=== PATIENT | male | born 1950 | race Caucasian/White ===

== ENCOUNTER → 2017-04-16 | Outpatient (CLI) | payer MEDICARE, BC ==
--- NOTE | 2017-04-16 12:38 | RADIOLOGY REPORT (SQ) ---
EXAM DESCRIPTION: U/S ABDOMEN COMPLETE W/O DOP COMPLETED DATE/TIME: 04/16/2017 11:13 am REASON FOR STUDY: R11.2 NAUSEA WITH VOMITING, UNSPECIFIED R19.7 DIARRHEA, UNSPECIFIED R11.2 NAUSEA WITH VOMITING, UNSPECIFIED R19.7 DIARRHEA, UNSPECIFIED COMPARISON: None. TECHNIQUE: Dynamic and static grayscale images acquired of the abdomen and recorded on PACS. Additio nal selected color Doppler and spectral images recorded. LIMITATIONS: None. FINDINGS: PANCREAS: No masses. Visualized pancreatic duct normal caliber. LIVER: Echotexture is coarse with increased echogenicity consistent with fatty infiltration. LIVER VASCULATURE: Normal directional flow of the main portal vein and hepatic veins. GALLBLADDER: No stones. Normal wall thickness. No pericholecystic fluid. ULTRASOUND-DETECTED NAIR'S SIGN: Negative. INTRAHEPATIC DUCTS AND COMMON DUCT: CBD and intrahepatic ducts normal caliber. No filling defects. INFERIOR VENA CAVA: Normal flow. AORTA: No aneurysm. RIGHT KIDNEY: Normal size. Normal echogenicity. 1.7 cm cyst. No solid or suspicious masses. No hyd ronephrosis. No calcifications. LEFT KIDNEY: Normal size. Normal echogenicity. No solid or suspicious masses. No hydronephrosis. No calcifications. SPLEEN:Normal size. No solid masses. PERITONEAL AND PLEURAL SPACES: No ascites or effusions. OTHER: No other significant finding. IMPRESSION: FATTY LIVER. CORTICAL CYST IN THE RIGHT KIDNEY. NO OTHER SIGNIFICANT FINDING. TECHNICAL DOCUMENTATION: JOB ID: [id number] [employer]- All Rights Reserved
== END ==
LOC: RAD 10:29
PROVIDERS: ATTEND Internal Medicine Gastroenterology
DX: K76.0 Fatty (change of) liver, not elsewhere classified (principal); R11.2 Nausea with vomiting, unspecified; R19.7 Diarrhea, unspecified; Q61.01 Congenital single renal cyst
CPT/HCPCS: 76700

== ENCOUNTER → 2018-12-14 | Outpatient (CLI) | payer MEDICARE, BC ==
--- NOTE | 2018-12-14 15:31 | RADIOLOGY REPORT (SQ) ---
EXAM DESCRIPTION: CAROTID DOPPLER COMPLETED DATE/TIME: 12/14/2018 10:42 am REASON FOR STUDY: PAD I73.9 PERIPHERAL VASCULAR DISEASE, UNSPECIFIED Z87.891 PERSONAL HISTORY OF N ICOTINE DEPENDENCE COMPARISON: None. TECHNIQUE: Grayscale ultrasound, Doppler velocity and spectra, and color Doppler images acquired of the extra-cranial carotid and vertebral arteries. Images stored on PACS. LIMITATIONS: None. FINDINGS: RIGHT CAROTID CCA Velocities: Within normal limits. ICA Velocities Peak systolic 77 cm/s. End diastolic 25 cm/s. Proximal ICA/CCA peak systolic ratio 0.68. Spectra normal. No significant plaque. LEFT CAROTID CCA Velocities: Within normal limits. ICA Velocities Peak systolic 76 cm/s. End diastolic 23 cm/s. Proximal ICA/CCA peak systolic ratio 0.86. There is some irregular plaque in the proximal ICA. VERTEBRAL ARTERIES: Antegrade flow. Normal waveforms. SUBCLAVIAN ARTERIES: No finding. OTHER: No other significant finding. IMPRESSION: NO HEMODYNAMICALLY SIGNIFICANT STENOSIS. COMMENT: Quality ID #[id number]: Velocity criteria are extrapolated from the diameter data as defined by t he Society of Radiologists in Ultrasound Consensus Conference. Radiology 2003: 229; 340-346. TECHNICAL DOCUMENTATION: JOB ID: [id number] [employer]- All Rights Reserved Reading location - IP/workstation name: [email or web address]
== END ==
LOC: SP 09:48
PROVIDERS: ATTEND Family Medicine
DX: I73.9 Peripheral vascular disease, unspecified (principal); Z87.891 Personal history of nicotine dependence
CPT/HCPCS: 93880

== ENCOUNTER → 2018-12-16 | Outpatient (CLI) | payer MEDICARE, BC ==
--- NOTE | 2018-12-16 09:00 | RADIOLOGY REPORT (SQ) ---
EXAM DESCRIPTION: U/S ABD AORTIC SCREENING COMPLETED DATE/TIME: 12/16/2018 8:47 am REASON FOR STUDY: I73.9 PERIPHERAL VASCULAR DISEASE, UNSPECIFIED Z87.891 PERSONAL HISTORY OF BRYAN CHEEK DEPENDENCE I73.9 PERIPHERAL VASCULAR DISEASE, UNSPECIFIED COMPARISON: None. TECHNIQUE: Static and dynamic grayscale images acquired of the aorta and stored on PACs. Selected co martin Doppler and spectral images recorded. LIMITATIONS: None. FINDINGS: AORTIC CALIBER MAXIMAL PROXIMAL: 2.2 cm. MID: 1.7 cm. DISTAL: 1.5 cm. ILIAC DIAMETER RIGHT: 1.0 cm. LEFT: 0.9 cm. OTHER: No other significant finding. IMPRESSION: NO ABDOMINAL AORTIC ANEURYSM. COMMENT: Aortic aneurysm imaging followup: 2.6-2.9 cm Every 5 years* *Based upon the Society for Vascular Surgery Guidelines: J Vasc Surg. 2009 Oct;50(4 Suppl):S2-49 *For aortas of maximum diameter of 2.6-2.9 cm meeting the criteria for AAA (?1.5 x proximal normal se gment) TECHNICAL DOCUMENTATION: JOB ID: [id number] [employer]- All Rights Reserved Reading location - IP/workstation name: [email or web address]
== END ==
LOC: RAD 08:12
PROVIDERS: ATTEND Family Medicine
DX: Z13.6 Encounter for screening for cardiovascular disorders (principal); I73.9 Peripheral vascular disease, unspecified; Z09 Encounter for follow-up examination after completed treatment for conditions other than malignant neoplasm; Z87.891 Personal history of nicotine dependence
CPT/HCPCS: 76706

== ENCOUNTER → 2019-04-29 | Outpatient (CLI) | payer MEDICARE, BC ==
--- NOTE | 2019-04-29 13:07 | RADIOLOGY REPORT (SQ) ---
EXAM DESCRIPTION: CT RT LOWER EXTREMITY WITHOUT COMPLETED DATE/TIME: 04/29/2019 9:50 am REASON FOR STUDY: PAIN IN RIGHT HIP/LEG COMPARISON: None. TECHNIQUE: Axial imaging performed through the Right hip with reformatted coronal and sagittal imaging windowed for bone and soft tissues. Images saved to PAC S. 3D IMAGING: Were 3D images as MIP, SSD, or volume rendering performed at the work station? Yes LIMITATIONS: Metal artifact. FINDINGS: SOFT TISSUES: No obvious swelling or foreign body. BONY STRUCTURES: Total hip arthroplasty. Demineralization and loss of trabecular pattern in the isch ium and femoral osteotomy bed. Lateral migration of the femoral component within the cup. Mild acet abular protrusio. MINERALIZATION: See above. OTHER: No other significant finding. 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 COMMENT: Findings were called to Alvaro Gonzalez PA-C on 04/29/2019 at 1258 hours. Reading location - IP/workstation name: [email or web address]
== END ==
LOC: RAD 09:31
PROVIDERS: ATTEND Physician Assistant
DX: M25.551 Pain in right hip (principal); M79.604 Pain in right leg

== ENCOUNTER 2019-11-05 12:23 | Emergency (ER) | payer MEDICARE, BC ==
--- NOTE | 2019-11-05 13:07 | ER Document Report ---
ED Medical Screen (RME) - General Chief Complaint: Fall Stated Complaint: FALL/HEAD PAIN Time Seen by Provider: 11/05/19 12:48 Primary Care Provider: JOSE ULRICH PA [Primary Care Provider] - Follow up as needed Notes: Patient is a 69-year-old male who presents the emergency department after a fall. He sustained his fall yesterday when he was walking. Patient has history of a stroke. He is currently on Eliquis for atrial fibrillation. Patient states that he has pain to his head, left knee, nose and left wrist. Exam: Abrasions noted to nose, left knee. Swelling noted to left wrist. Alert and oriented. I have greeted and performed a rapid initial assessment of this patient. A comprehensive ED assessment and evaluation of the patient, analysis of test results and completion of medical decision making process will be conducted by an additional ED providers. TRAVEL OUTSIDE OF THE [place] IN LAST 30 DAYS: No - Related Data Allergies/Adverse Reactions: No Known Allergies Allergy (Unverified 11/23/14 12:18) Home Medications: Eliquis Past Medical History - Social History Chew tobacco use (# tins/day): No Frequency of alcohol use: None Drug Abuse: None - Past Medical History Cardiac Medical History: Reports: Hx Hypertension - ON MEDS, Hx Peripheral Vascular Disease Denies: Hx Heart Attack Pulmonary Medical History: Denies: Hx Asthma Neurological Medical History: Denies: Hx Cerebrovascular Accident, Hx Seizures GI Medical History: Denies: Hx Hepatitis, Hx Hiatal Hernia, Hx Ulcer Psychiatric Medical History: Reports: Hx Depression Infectious Medical History: Denies: Hx Hepatitis Past Surgical History: Reports: Hx Orthopedic Surgery, Hx Vascular Surgery - stent in leg. Denies: Hx Open Heart Surgery, Hx Pacemaker - Immunizations Hx Diphtheria, Pertussis, Tetanus Vaccination: Yes Physical Exam - Vital signs Vitals: Temp Pulse Resp BP Pulse Ox 99.1 F 76 16 144/57 H 98 11/05/19 12:39 11/05/19 12:39 11/05/19 12:39 11/05/19 12:39 11/05/19 12:39 Course - Vital Signs Vital signs: Temp Pulse Resp BP Pulse Ox 99.1 F 76 16 144/57 H 98 11/05/19 12:39 11/05/19 12:39 11/05/19 12:39 11/05/19 12:39 11/05/19 12:39 Doctor's Discharge - Discharge Referrals: JOSE ULRICH PA [Primary Care Provider] - Follow up as needed
--- NOTE | 2019-11-05 13:27 | RADIOLOGY REPORT (SQ) ---
EXAM DESCRIPTION: CT HEAD WITHOUT IMAGES COMPLETED DATE/TIME: 11/05/2019 1:17 pm REASON FOR STUDY: fall; head pain; on Eliquis COMPARISON: None. TECHNIQUE: Axial images acquired through the brain without intravenous contrast. Images reviewed wi th bone, brain and subdural windows. Additional sagittal and coronal reconstructions were generated. Images stored on PACS. All CT scanners at this facility use dose modulation, iterative reconstruction, and/or weight based d osing when appropriate to reduce radiation dose to as low as reasonably achievable (ALARA). [facility]: Dose Right [facility]: CareDose [facility]: Dose Right [facility]: Teradose 4D [facility]: baseclick RADIATION DOSE: CT Rad equipment meets quality standard of care and radiation dose reduction techniq ues were employed. CTDIvol: 53.2 mGy. DLP: 1044 mGy-cm. LIMITATIONS: None. FINDINGS: Probable arachnoid granulations in the left anterior cranial fossa. There is an area ence phalomalacia and gliosis in the right cerebellar hemisphere. There is no acute intracranial hemorrha ge, vascular territorial infarct, extra-axial fluid collection, mass effect or midline shift. The gr ay-white matter differentiation is preserved. The caliber of the ventricles is concordant with the d egree of sulcation. There is no effacement of the cerebral sulci or basal subarachnoid cisterns. The globes are aphakic. The orbits are intact. The paranasal sinuses are clear. There is no fractu re of the calvarium. IMPRESSION: 1. Chronic infarct in the right cerebellar hemisphere and probable arachnoid granulation s in the left anterior cranial fossa. 2. No acute intracranial abnormality. EVIDENCE OF ACUTE STROKE: NO. COMMENT: Quality ID # 436: Final reports with documentation of one or more dose reduction techniques (e.g., Automated exposure control, adjustment of the mA and/or kV according to patient size, use of iterative reconstruction technique) TECHNICAL DOCUMENTATION: JOB ID: [id number] 2010 [employer]- All Rights Reserved Reading location - IP/workstation name: [email or web address]
--- NOTE | 2019-11-05 13:32 | RADIOLOGY REPORT (SQ) ---
EXAM DESCRIPTION: CT CERVICAL SPINE WITHOUT IMAGES COMPLETED DATE/TIME: 11/05/2019 1:17 pm REASON FOR STUDY: fall COMPARISON: None. TECHNIQUE: Axial images acquired through the cervical spine without intravenous contrast. Images re viewed with lung, soft tissue and bone windows. Reconstructed coronal and sagittal MPR images review ed. Images stored on PACS. All CT scanners at this facility use dose modulation, iterative reconstruction, and/or weight based d osing when appropriate to reduce radiation dose to as low as reasonably achievable (ALARA). [facility]: Dose Right [facility]: CareDose [facility]: Dose Right [facility]: Teradose 4D [facility]: LectureTools RADIATION DOSE: CT Rad equipment meets quality standard of care and radiation dose reduction techniq ues were employed. CTDIvol: 19.5 mGy. DLP: 357 mGy-cm. LIMITATIONS: None. FINDINGS: ALIGNMENT: Grade 1 retrolisthesis of C3 relative to C4. There is no craniocervical or eric antoaxial dissociation. MINERALIZATION: Normal. VERTEBRAL BODIES: The cervical vertebral body heights are preserved. There is no fracture. DISCS: Evaluation of the spinal canal for stenosis or compression is limited due to the absence of in travenous contrast. The C3-C4, C4-C5 and C5-C6 intervertebral disc spaces are narrowed. FACETS, LATERAL MASSES, POSTERIOR ELEMENTS: Osteophytic foraminal stenosis on the left at C3-C4, bila terally at C4-C5, and on the right at C5-C6. There is no acute fracture. HARDWARE: None in the spine. VISUALIZED RIBS: No fractures. LUNG APICES AND SOFT TISSUES: Atherosclerotic calcification of the carotid bifurcations. The right l obe of the thyroid gland is heterogeneous. OTHER: No other finding. IMPRESSION: No acute fracture or malalignment of the cervical spine. TECHNICAL DOCUMENTATION: JOB ID: [id number] Quality ID # [id number]: Final reports with documentation of one or more dose reduction techniques (e.g., Au tomated exposure control, adjustment of the mA and/or kV according to patient size, use of iterative reconstruction technique) 2010 [employer]- All Rights Reserved Reading location - IP/workstation name: [email or web address]
--- NOTE | 2019-11-05 13:32 | RADIOLOGY REPORT (SQ) ---
EXAM DESCRIPTION: KNEE LEFT 4 VIEW IMAGES COMPLETED DATE/TIME: 11/05/2019 1:18 pm REASON FOR STUDY: fall; pain COMPARISON: None. NUMBER OF VIEWS: Four views. TECHNIQUE: AP, lateral, and both oblique radiographic images acquired of the left knee. LIMITATIONS: None. FINDINGS: MINERALIZATION: Osteopenia. BONES: No acute fracture or dislocation. No worrisome bone lesions. Report background of tricompart mental degenerative changes, most significantly affecting the medial compartment. JOINT: Small joint effusion. SOFT TISSUES: Soft tissue swelling overlies the proximal patellar tendon. OTHER: No other significant finding. IMPRESSION: Anterior soft tissue swelling and small joint effusion without associated osseous injury . Background of tricompartmental degenerative changes. TECHNICAL DOCUMENTATION: JOB ID: [id number] 2010 [employer]- All Rights Reserved Reading location - IP/workstation name: [email or web address]
--- NOTE | 2019-11-05 13:35 | RADIOLOGY REPORT (SQ) ---
EXAM DESCRIPTION: WRIST LEFT 3 VIEWS IMAGES COMPLETED DATE/TIME: 11/05/2019 1:18 pm REASON FOR STUDY: fall; pain COMPARISON: None. NUMBER OF VIEWS: Three views. TECHNIQUE: AP, lateral, and oblique radiographic images acquired of the left wrist. LIMITATIONS: None. FINDINGS: MINERALIZATION: Osteopenia. BONES: Severe degenerative changes are seen of the thumb carpal metacarpal and thumb metacarpal phala ngeal joints. An ossicle adjacent to the ulnar styloid is consistent with sequela of remote trauma. No acute fracture or dislocation is demonstrated. SOFT TISSUES: No soft tissue swelling. No foreign body. OTHER: No other significant finding. IMPRESSION: No evidence of acute osseous injury. Background of severe thumb carpal metacarpal and m etacarpal phalangeal joint degenerative changes. TECHNICAL DOCUMENTATION: JOB ID: [id number] 2010 [employer]- All Rights Reserved Reading location - IP/workstation name: [email or web address]
[2019-11-05 13:53] LABS: ABSOLUTE EOSINOPHILS # (AUTO) 0.5 10^3/uL (0.0-0.6); ABSOLUTE LYMPHOCYTES (AUTO) 1.2 10^3/uL (0.5-4.7); ABSOLUTE MONOCYTES (AUTO) 0.8 10^3/uL (0.1-1.4); BASOPHILS % (AUTO) 0.2 % (0-2); EOSINOPHILS % (AUTO) 4.6 % (0-6); HEMATOCRIT 33.7 % (37.9-51.0); HEMOGLOBIN 11.6 g/dL (13.5-17.0); LYMPHOCYTES % (AUTO) 11.6 % (13-45); MEAN CORPUSCULAR HEMOGLOBIN 32.2 pg (27.0-33.4); MEAN CORPUSCULAR HGB CONC 34.3 g/dL (32.0-36.0); MEAN CORPUSCULAR VOLUME 94 fl (80-97); MONOCYTES % (AUTO) 7.4 % (3-13); PLATELET COUNT 251 10^3/uL (150-450); RED CELL DISTRIBUTION WIDTH 14.3 % (11.5-14.0); SEGMENTED NEUTROPHILS % (AUTO) 76.2 % (42-78); TOTAL CELLS COUNTED % (AUTO) 100 %; WHITE BLOOD COUNT 10.5 10^3/uL (4.0-10.5)
[2019-11-05 14:03] LABS: INTERNATIONAL RATION (INR) 1.09; PROTHROMBIN TIME 14.2 SEC (11.4-15.4)
[2019-11-05 14:17] LABS: ALBUMIN 4.3 g/dL (3.5-5.0); ALKALINE PHOSPHATASE 70 U/L (38-126); ANION GAP 8 (5-19); ASPARTATE AMINO TRANSFERASE 26 U/L (17-59); BILIRUBIN,TOTAL 0.2 mg/dL (0.2-1.3); BLOOD UREA NITROGEN 18 mg/dL (7-20); CALCIUM 9.9 mg/dL (8.4-10.2); CARBON DIOXIDE 31 mmol/L (22-30); CHLORIDE 97 mmol/L (98-107); GLUCOSE 147 mg/dL (75-110); POTASSIUM 4.8 mmol/L (3.6-5.0); TOTAL PROTEIN 7.3 g/dL (6.3-8.2)
--- NOTE | 2019-11-05 14:17 | ER Document Report ---
ED Fall - General Chief Complaint: Fall Stated Complaint: FALL/HEAD PAIN Time Seen by Provider: 11/05/19 12:48 Primary Care Provider: JOSE ULRICH PA [NO LOCAL MD] - Follow up as needed Notes: 69-year-old man presents to the emergency department history of a fall which occurred yesterday. Apparently he lost his balance falling hitting his nose and also injuring the left wrist and left knee. He denies loss of consciousness he is on Eliquis. He waited until today noted that the wrist pain has continued and he has had some bleeding from the nose. He rates the pain in this wrist and 8/10. TRAVEL OUTSIDE OF THE [place] IN LAST 30 DAYS: No - Related data Allergies/Adverse Reactions: No Known Allergies Allergy (Unverified 11/23/14 12:18) Home Medications: Eliquis Past Medical History - Social History Smoking Status: Never Smoker Chew tobacco use (# tins/day): No Frequency of alcohol use: None Drug Abuse: None Family History: CAD, DM, Malignancy Patient has homicidal ideation: No - Past Medical History Cardiac Medical History: Reports: Hx Hypertension - ON MEDS, Hx Peripheral Vasc ular Disease Denies: Hx Heart Attack Pulmonary Medical History: Denies: Hx Asthma Neurological Medical History: Denies: Hx Cerebrovascular Accident, Hx Seizures GI Medical History: Denies: Hx Hepatitis, Hx Hiatal Hernia, Hx Ulcer Psychiatric Medical History: Reports: Hx Depression Infectious Medical History: Denies: Hx Hepatitis Past Surgical History: Reports: Hx Orthopedic Surgery, Hx Vascular Surgery - stent in leg. Denies: Hx Open Heart Surgery, Hx Pacemaker - Immunizations Hx Diphtheria, Pertussis, Tetanus Vaccination: Yes Review of Systems - Review of Systems Notes: Constitutional: Negative for fever. HENT: See HPI Eyes: Negative for visual changes. Cardiovascular: Negative for chest pain. Respiratory: Negative for shortness of breath. Gastrointestinal: Negative for abdominal pain, vomiting or diarrhea. Genitourinary: Negative for dysuria. Musculoskeletal: + Left wrist pain Skin: Negative for rash. Neurological: Negative for headaches, weakness or numbness. 10 point ROS negative except as marked above and in HPI. Physical Exam - Vital signs Vitals: Temp Pulse Resp BP Pulse Ox 99.1 F 76 16 144/57 H 98 11/05/19 12:39 11/05/19 12:39 11/05/19 12:39 11/05/19 12:39 11/05/19 12:39 - Notes Notes: PHYSICAL EXAMINATION: Physical Exam: General: Well-nourished well-developed 69-year-old male in no acute distress HEENT: NC/AT, pupils equal round and reactive to light, MM moist,nares clear, oropharynx clear, airway patent + abrasion on the nasal region, Neck: supple, no adenopathy, no masses. Good range of motion Lungs: clear, no wheezing, no rales no rhonchi CVS: Regular rate and rhythm no murmur gallop or rub Abdomen: Soft, active, nontender, no masses, no hepatosplenomegaly Ext: + Tenderness in the left wrist with decreased range of motion secondary to swelling and tenderness. No ecchymoses. Left knee with superficial abrasions and mild swelling, no obvious deformity. Neuro: Alert and responsive, moving all 4 extremities on command, cranial nerves intact, no focal findings Skin: Intact no open lesions, no rash PSYCH: Normal mood, normal affect. Course - Re-evaluation Re-evalutation: 11/05/19 14:43 I have reviewed the findings of the CT scan with the patient and plan that there is no intracranial hemorrhage, no fractures in the extremities the left wrist and the left knee. Neosporin is applied to the left knee abrasions a cock-up splint to the left wrist. The patient is being discharged home to follow-up as an outpatient. He may use tramadol for pain. - Vital Signs Vital signs: Temp Pulse Resp BP Pulse Ox 97.8 F 76 20 141/76 H 97 11/05/19 14:24 11/05/19 12:39 11/05/19 14:24 11/05/19 14:24 11/05/19 14:24 - Laboratory Result Diagrams: 11/05/19 13:37 11/05/19 13:37 Laboratory results interpreted by me: 11/05/19 11/05/19 13:37 13:37 RBC 3.60 L Hgb 11.6 L Hct 33.7 L RDW 14.3 H Lymph % (Auto) 11.6 L Sodium 135.6 L Chloride 97 L Carbon Dioxide 31 H Glucose 147 H - Diagnostic Test Radiology reviewed: Pending, Image reviewed, Reports reviewed Radiology results interpreted by me: 11/05/19 14:44 CT head: No intracranial hemorrhage, no signs of acute stroke. Left wrist x-ray: No fracture, no displacement Left knee x-ray: No fracture, no displacement. C-spine x-ray: No fracture, no acute findings. There is narrowing noted multipl e levels DDD. Discharge - Discharge Clinical Impression: Abrasion, left knee, initial encounter Contusion of nose Qualifiers: Encounter type: initial encounter Qualified Code(s): S00.33XA - Contusion of nose, initial encounter Left wrist sprain Qualifiers: Encounter type: initial encounter Qualified Code(s): S63.502A - Unspecified sprain of left wrist, initial encounter Fall Qualifiers: Encounter type: initial encounter Qualified Code(s): W19.XXXA - Unspecified fall, initial encounter Condition: Good Disposition: HOME, SELF-CARE Instructions: Abrasions ([facility]), Abrasions of the Face ([facility]), Contusion ([facility]), Wrist Sprain ([facility]) Prescriptions: Tramadol HCl [Ultram 50 mg Tablet] 50 mg PO Q4HP PRN #12 tab PRN Reason: Referrals: JOSE ULRICH PA [NO LOCAL MD] - Follow up as needed
[2019-11-05 15:23] VITALS: BP 133/76
--- NOTE | 2019-11-05 20:24 | EKG REPORT ---
SEVERITY:- ABNORMAL ECG - SINUS RHYTHM LEFT VENTRICULAR HYPERTROPHY ABNORMAL T, CONSIDER ISCHEMIA, INFERIOR LEADS ANTERIOR ST ELEVATION, PROBABLY DUE TO LVH : Confirmed by: [place] MD 05-Nov-2019 20:23:42
== END 2019-11-05 15:23 | disposition home or self-care (01) ==
LOC: ER 12:23
DX: S00.33XA Contusion of nose, initial encounter (principal); S80.212A Abrasion, left knee, initial encounter; S63.502A Unspecified sprain of left wrist, initial encounter; R51 Headache; R04.0 Epistaxis; M25.532 Pain in left wrist; M25.562 Pain in left knee; W19.XXXA Unspecified fall, initial encounter; I10 Essential (primary) hypertension; Z79.899 Other long term (current) drug therapy
CPT/HCPCS: 36415; 70450; 72125; 80053; 85025; 85610; 85730; 93005; 93010; 99284

== ENCOUNTER → 2020-03-20 | Outpatient (CLI) | payer MEDICARE, BC ==
--- NOTE | 2020-03-20 12:26 | RADIOLOGY REPORT (SQ) ---
EXAM DESCRIPTION: HIP RIGHT AP/LATERAL IMAGES COMPLETED DATE/TIME: 03/20/2020 12:01 pm REASON FOR STUDY: R HIP PAIN M25.551 PAIN IN RIGHT HIP COMPARISON: None. NUMBER OF VIEWS: Two views. TECHNIQUE: AP pelvis and additional frog legview of the right hip. LIMITATIONS: None. FINDINGS: MINERALIZATION: Normal. RIGHT HIP: Right hip arthroplasty. No acute fracture. The femoral head component appears to be ecce ntrically located with respect to the acetabular component. LEFT HIP: Left hip arthroplasty. No acute finding. PUBIS AND ISCHIUM: No fracture. PELVIS: No fracture. SACRUM: No fracture or dislocation. No worrisome bone lesions. LOWER LUMBAR SPINE: No fracture or dislocation. No worrisome bone lesions. No significant disc disea se. SOFT TISSUES: No findings. OTHER: No other significant finding. IMPRESSION: Right hip arthroplasty. Cannot exclude dislocation. Consider CT. TECHNICAL DOCUMENTATION: JOB ID: [id number] 2010 [employer]- All Rights Reserved Reading location - IP/workstation name: [email or web address]
== END ==
LOC: RAD 11:22
PROVIDERS: ATTEND Nurse Practitioner Acute Care
DX: M25.551 Pain in right hip (principal); Z96.641 Presence of right artificial hip joint